=== PATIENT | male | born 1960 | race Caucasian/White ===

== ENCOUNTER 2018-08-20 14:09 | Emergency (ER) | payer MEDICAID ==
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
[2018-08-20] MEDS ORDERED: KETOROLAC 30 MG/1 ML SDV IM ONE (16:31)
[2018-08-20 16:55] VITALS: BP 147/98
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
== END 2018-08-20 17:28 | disposition home or self-care (01) ==
DX: S62.641A Nondisplaced fracture of proximal phalanx of left index finger, initial encounter for closed fracture (principal); S13.9XXA Sprain of joints and ligaments of unspecified parts of neck, initial encounter; S09.90XA Unspecified injury of head, initial encounter; I10 Essential (primary) hypertension; B19.20 Unspecified viral hepatitis C without hepatic coma; Z23 Encounter for immunization; Y04.8XXA Assault by other bodily force, initial encounter; Y92.828 Other wilderness area as the place of occurrence of the external cause; Y93.84 Activity, sleeping; Y99.9 Unspecified external cause status
CPT/HCPCS: J1885; L3925